=== PATIENT | female | born 1945 | race Two or more races ===

== ENCOUNTER 2022-12-31 14:17 | Emergency (ER) | payer OTHER ==
[~2022-12-31] VITALS: Ht 154.9 cm; Wt 53.6 kg
[2022-12-31 15:06] LABS: Urine Bacteria FEW /hpf (None Seen); Urine Blood 1+ /uL (Negative); Urine Specific Gravity 1.025 (1.001-1.035); Urine WBC 186 /hpf (0 - 5)
[2022-12-31] MEDS ORDERED: NITR-87 PO (16:37)
[2022-12-31] MEDS ORDERED: cefTRIAXone SOD 1,000 MG VL IM ONE (16:45)
[2022-12-31] MEDS ORDERED: LIDOCAINE 1% HCL (LOCAL ANESTH.) INJ 20ML MDV ONE (17:15)
[2022-12-31 17:23] VITALS: BP 135/80
== END 2022-12-31 17:37 | disposition home or self-care (01) ==
LOC: ER 14:17
DX: N39.0 Urinary tract infection, site not specified (principal); I10 Essential (primary) hypertension; E11.9 Type 2 diabetes mellitus without complications
CPT/HCPCS: 81001; 96372; 99283; J0696; J2001